=== PATIENT | male | born 1975 | race Caucasian/White ===

== ENCOUNTER 2021-02-04 22:07 | Emergency (ER) | payer OTHER ==
[2021-02-04 22:41] LABS: BASOPHIL 0.4 % (0-2); HCT 34.5 % (42.0-52.0); HGB 12.7 g/dl (13.2-18.0); MCH 32.6 pg (25.0-31.0); MCHC 36.8 g/dL (32.0-36.0); MCV 88.5 fL (78.0-100.0); MONOCYTE 8.1 % (0-12); MPV 8.9 fL (6.0-9.5); NEUTROPHIL 77.1 % (41-80); NRBC 0; PLT 200 K/uL (150-400); RDW 11.2 % (11.5-14.0); WBC 8.4 K/uL (4.0-10.5)
[2021-02-04 23:04] LABS: ALBUMIN 3.7 g/dL (3.4-5.0); BILIRUBIN - TOTAL 0.4 mg/dL (0.2-1.0); CREATININE 0.74 mg/dL (0.67-1.17); GLOBULIN (CALCULATION) 2.7 g/dL; POTASSIUM 3.8 mmol/L (3.5-5.1); TOTAL PROTEIN 6.4 g/dL (6.4-8.2)
[2021-02-04 23:07] LABS: LACTIC ACID 0.9 mmol/L (0.4-1.9)
[2021-02-05 00:29] LABS: BILIRUBIN NEGATIVE (NEGATIVE); BLOOD NEGATIVE Ery/uL (NEGATIVE); CLARITY CLEAR (CLEAR); COLOR YELLOW (YELLOW); GLUCOSE (U) NORMAL (NORMAL); LEUKOCYTES NEGATIVE Leu/uL (NEGATIVE); NITRITE NEGATIVE (NEGATIVE); PROTEIN NEGATIVE (NEGATIVE); UROBILINOGEN 0.2 mg/dL (0.2-1.0); pH 6.5 (5.0-9.0)
[2021-02-05 00:38] LABS: AMPHETAMINES NEGATIVE (NEGATIVE); BARBITURATES NEGATIVE (NEGATIVE); ECSTASY (MDMA) NEGATIVE (NEGATIVE); MARIJUANA (THC) NEGATIVE (NEGATIVE); METHADONE NEGATIVE (NEGATIVE); OPIATES NEGATIVE (NEGATIVE); OXYCODONE NEGATIVE (NEGATIVE)
[2021-02-05] MEDS ORDERED: ZOFRAN4 M1 PO (01:14)
== END 2021-02-05 01:30 | disposition home or self-care (01) ==
LOC: FER 22:07
PROVIDERS: Emergency Medicine
DX: R11.2 Nausea with vomiting, unspecified (principal)
CPT/HCPCS: 36415; 80053; 80305; 81003; 83605; 85025; G0480; J1200; J2405; J7030